=== PATIENT | female | born 1970 | race Caucasian/White ===

== ENCOUNTER 2018-08-20 12:11 | Emergency (ER) | payer OTHER ==
[~2018-08-20] VITALS: Ht 162.6 cm; Wt 52.6 kg
[~2018-08-20 12:11] MED LIST: CIPRO XR 5500 MG/BOT PO; FORTAMET500 MG; GILTUSS TR TAB1 EACH PO; SYNTHROID100 MCG; ZOLOFT25 MG
[2018-08-20] MEDS ORDERED: SYNTHROID200 MCG PO (13:22)
[2018-08-20] MEDS ORDERED: PROZAC40 MG PO (13:23)
[2018-08-20] MEDS ORDERED: FOLIC ACID0.4 MG PO (13:23)
[2018-08-20] MEDS ORDERED: XANAX XR0.5 MG PO (13:24)
== END 2018-08-20 20:08 | disposition home or self-care (01) ==
LOC: ER 12:11
DX: R42 Dizziness and giddiness (principal)

== ENCOUNTER 2018-08-28 13:27 | Outpatient (CLI) | payer OTHER ==
[~2018-08-28 13:27] MED LIST changes: +FOLIC ACID0.4 MG PO; +PROZAC40 MG PO; +SYNTHROID200 MCG PO; +XANAX XR0.5 MG PO
== END 2018-08-28 13:41 | disposition home or self-care (01) ==
LOC: NUCLEAR 13:27
DX: I82.491 Acute embolism and thrombosis of other specified deep vein of right lower extremity (principal); I82.492 Acute embolism and thrombosis of other specified deep vein of left lower extremity

== ENCOUNTER → 2019-02-27 16:52 | Outpatient (CLI) | payer OTHER | END | disposition home or self-care (01) | LOC: LAB 16:52 | DX: J11.1 Influenza due to unidentified influenza virus with other respiratory manifestations (principal) ==

== ENCOUNTER 2020-07-04 14:55 | Emergency (ER) | payer OTHER ==
[~2020-07-04] VITALS: Ht 160 cm; Wt 54.4 kg
== END 2020-07-04 18:49 | disposition home or self-care (01) ==
LOC: ER 14:55
DX: E11.649 Type 2 diabetes mellitus with hypoglycemia without coma (principal)